=== PATIENT | male | born 1990 | race African-American/Black ===

== ENCOUNTER 2019-09-27 22:33 | Emergency (ER) | payer OTHER ==
[~2019-09-27] VITALS: Ht 172.7 cm; Wt 91.0 kg
[~2019-09-27 22:33] MED LIST: BUDE6HFA; PROAIR INHALER
[2019-09-27 22:54] VITALS: BP 131/80
== END 2019-09-27 23:32 | disposition home or self-care (01) ==
LOC: ER 22:33
DX: T16.1XXA Foreign body in right ear, initial encounter (principal); J45.909 Unspecified asthma, uncomplicated; F12.10 Cannabis abuse, uncomplicated; Z98.890 Other specified postprocedural states; X58.XXXA Exposure to other specified factors, initial encounter; Y93.89 Activity, other specified; Y92.018 Other place in single-family (private) house as the place of occurrence of the external cause
CPT/HCPCS: 69200; 99284

== ENCOUNTER 2020-02-08 09:15 | Emergency (ER) | payer OTHER ==
[~2020-02-08] VITALS: Ht 175.3 cm; Wt 100.0 kg
[2020-02-08] MEDS ORDERED: KETOROLAC 30MG/ML VIAL IM ONE (09:45)
[2020-02-08 11:05] VITALS: BP 148/41
== END 2020-02-08 11:06 | disposition home or self-care (01) ==
LOC: ER 09:15
DX: G44.209 Tension-type headache, unspecified, not intractable (principal); F17.200 Nicotine dependence, unspecified, uncomplicated; F12.10 Cannabis abuse, uncomplicated; J45.909 Unspecified asthma, uncomplicated
CPT/HCPCS: 96372; 99283; J1885

== ENCOUNTER 2020-03-06 09:02 | Emergency (ER) | payer OTHER ==
[~2020-03-06] VITALS: Ht 175.3 cm; Wt 79.0 kg
[2020-03-06 09:08] VITALS: BP 120/93
[2020-03-06] MEDS ORDERED: ACETAMINOPHEN 325MG TABLET PO ONE (09:15)
[2020-03-06] MEDS ORDERED: KETOROLAC 30MG/ML VIAL IM ONE (09:45)
== END 2020-03-06 09:48 | disposition home or self-care (01) ==
LOC: ER 09:02
DX: J01.90 Acute sinusitis, unspecified (principal); G44.209 Tension-type headache, unspecified, not intractable; J30.9 Allergic rhinitis, unspecified; F12.10 Cannabis abuse, uncomplicated
CPT/HCPCS: 96372; 99283; J1885

== ENCOUNTER 2020-04-02 21:45 | Emergency (ER) | payer OTHER ==
[~2020-04-02] VITALS: Ht 175.3 cm; Wt 80.0 kg
[2020-04-02] MEDS ORDERED: KETOROLAC 30MG/ML VIAL IM ONE (23:30)
[2020-04-03 01:00] VITALS: BP 120/67
== END 2020-04-03 01:01 | disposition home or self-care (01) ==
LOC: ER 21:45
DX: R51.9 Headache, unspecified (principal); J45.909 Unspecified asthma, uncomplicated; F12.10 Cannabis abuse, uncomplicated
CPT/HCPCS: 96372; 99283; J1885

== ENCOUNTER 2023-09-17 17:11 | Emergency (ER) | payer MEDICAID, OTHER ==
[~2023-09-17] VITALS: Ht 175.3 cm; Wt 79.0 kg
[2023-09-17 17:26] VITALS: O2SAT 98
[2023-09-17] MEDS ORDERED: METH-653 MT (19:43)
[2023-09-17] MEDS ORDERED: ACET-2708 MT (19:43)
[2023-09-17 20:37] VITALS: BP 133/71; PULSE 65; RESP 20; TEMP 97.9
== END 2023-09-17 20:39 | disposition home or self-care (01) ==
LOC: ER 17:11
DX: M79.10 Myalgia, unspecified site (principal); F12.90 Cannabis use, unspecified, uncomplicated; J45.909 Unspecified asthma, uncomplicated; Z88.6 Allergy status to analgesic agent
CPT/HCPCS: 71045; 93005; 99283; Z7610

== ENCOUNTER 2023-09-21 11:56 | Emergency (ER) | payer MEDICAID ==
[~2023-09-21] VITALS: Ht 175.3 cm; Wt 77.0 kg
[~2023-09-21 11:56] MED LIST changes: +ACET-2708 MT; +METH-653 MT
[2023-09-21 12:00] VITALS: O2SAT 98
[2023-09-21 12:42] LABS: BASOPHILS % 0.8 % (0.0-2.0); EOSINOPHILS % 0.5 % (0.0-5.0); HEMATOCRIT. 37.4 % (42.0-52.0); HEMOGLOBIN. 12.3 g/dL (14.0-18.0); LYMPHOCYTES % 24.2 % (20.0-50.0); MEAN CORPUSCULAR HEMOGLOBIN 27.6 pg (28.0-32.0); MEAN CORPUSCULAR VOLUME 83.8 fL (80.0-94.0); MONOCYTES % 12.2 % (2.0-8.0); NEUTROPHILS % 62.3 % (40.0-76.0); PLATELET 320 x1000/uL (130-400); RED BLOOD CELL COUNT 4.47 mill/uL (4.7-6.1); RED CELL DISTRIBUTION WIDTH 13.5 % (11.6-14.6)
[2023-09-21 12:50] LABS: CHLORIDE 106 mEq/L (98-107); POTASSIUM 3.9 mEq/L (3.5-5.1); SODIUM 138 mEq/L (136-145)
[2023-09-21 12:51] LABS: CALCIUM 9.4 mg/dL (8.7-10.4); CARBON DIOXIDE 24 mEq/L (21-32)
[2023-09-21 12:56] LABS: GLUCOSE 82 mg/dL (70-105); UREA NITROGEN BLOOD 10 mg/dL (9-23)
[2023-09-21 13:11] LABS: TROPONIN I HIGH SENSITIVITY < 4 ng/L (3.0-53)
[2023-09-21] MEDS ORDERED: ACETAMINOPHEN 325MG TABLET PO ONE (15:15)
[2023-09-21] MEDS ORDERED: HYDR-459 MT (18:16)
[2023-09-21 18:48] VITALS: BP 112/74; PULSE 58; RESP 14; TEMP 98
== END 2023-09-21 18:49 | disposition home or self-care (01) ==
LOC: ER 12:09
DX: F41.9 Anxiety disorder, unspecified (principal); R07.9 Chest pain, unspecified; F12.90 Cannabis use, unspecified, uncomplicated; J45.909 Unspecified asthma, uncomplicated; Z88.6 Allergy status to analgesic agent
CPT/HCPCS: 36415; 71045; 80048; 84484; 85025; 93005; 99285

== ENCOUNTER 2024-01-17 13:56 | Emergency (ER) | payer MEDICAID ==
[~2024-01-17] VITALS: Ht 167.6 cm; Wt 68.0 kg
[~2024-01-17 13:56] MED LIST changes: +HYDR-459 MT
[2024-01-17 13:59] VITALS: O2SAT 97
[2024-01-17 14:24] VITALS: BP 118/67; PULSE 70; RESP 18; TEMP 36.50292; O2SAT 97
== END 2024-01-17 14:25 | disposition home or self-care (01) ==
LOC: ER 14:08
DX: R04.0 Epistaxis (principal); F12.10 Cannabis abuse, uncomplicated; J45.909 Unspecified asthma, uncomplicated; Z88.6 Allergy status to analgesic agent; Z79.899 Other long term (current) drug therapy
CPT/HCPCS: 99283